=== PATIENT | female | born 1970 | race Caucasian/White ===

== ENCOUNTER 2020-02-03 17:07 | Emergency (ER) | payer BC ==
[2020-02-03] MEDS ORDERED: OXYCODONE-ACETAMINOPHEN 5-325 MG TABLET PO ONE (19:17)
--- NOTE | 2020-02-03 19:21 | ER Document Report ---
HPI - HPI Time Seen by Provider: 02/03/20 18:58 Pain Level: 1 Notes: 49-year-old female patient presents the emergency department concern for possible abscess. Patient states she has a lump in the roof of her mouth that she believes is an area of infection. She went and saw her dentist recently who started her on antibiotics however she states this area has come up since then. She states the original area of pain was in her upper front teeth. She denies any fevers. - ROS Systems Reviewed and Negative: Yes All other systems reviewed and negative - CONSTITUTIONAL Constitutional: DENIES: Fever - EENT Notes: pain in roof of mouth Past Medical History - General Information source: Patient - Social History Smoking Status: Never Smoker Frequency of alcohol use: Social Drug Abuse: None Family History: Reviewed & Not Pertinent Patient has homicidal ideation: No - Medical History Medical History: Negative Surgical Hx: Negative - Immunizations Immunizations up to date: Yes Vertical Provider Document - CONSTITUTIONAL Notes: PHYSICAL EXAMINATION: GENERAL: Well-appearing, well-nourished and in no acute distress. HEAD: Atraumatic, normocephalic. EYES: Pupils equal round extraocular movements intact, conjunctiva are normal. ENT: Nares patent, small abscess noted to roof of mouth just behind tooth #9. There is fluctuance noted. No trismus. No facial swelling. NECK: Normal range of motion LUNGS: No respiratory distress Musculoskeletal: Normal range of motion NEUROLOGICAL: Normal speech, normal gait. PSYCH: Normal mood, normal affect. SKIN: Warm, Dry, normal turgor, no rashes or lesions noted. Course - Re-evaluation Re-evalutation: Abscess was aspirated with a needle and syringe. 2 cc of purulent drainage obtained. Patient tolerated well. Patient will be discharged home in stable condition at this time. Patient is already taking the appropriate antibiotics for dental abscess. - Vital Signs Vital signs: Temp Pulse Resp BP Pulse Ox 99.4 F 02/03/20 17:58 Procedures - Needle Aspiration mouth Type of Aspiration: Puncture Type: Simple Amount/type of drainage: 2ml purulent Note:: abscess at roof of mouth Discharge - Discharge Clinical Impression: Abscess of mouth Condition: Stable Disposition: HOME, SELF-CARE Additional Instructions: Please continue taking all medications as prescribed. Start taking the [place] for severe pain only. You can continue to take your meloxicam safely with this. Follow-up with your dentist. Prescriptions: Hydrocodone/Acetaminophen [[place] 5-325 mg Tablet] 1 tab PO Q4H #10 tablet
[2020-02-03 19:34] VITALS: BP 129/88
== END 2020-02-03 19:35 | disposition home or self-care (01) ==
LOC: ER 17:07
DX: K12.2 Cellulitis and abscess of mouth (principal)
CPT/HCPCS: 99283